=== PATIENT | female | born 1940 | race Caucasian/White ===

== ENCOUNTER → 2018-02-12 | Outpatient (CLI) | payer MEDICARE, MEDICAID | END | disposition home or self-care (01) | LOC: MAMMO 11:26 | PROVIDERS: ATTEND Specialist | DX: Z12.31 Encounter for screening mammogram for malignant neoplasm of breast (principal) | CPT/HCPCS: 77067 ==

== ENCOUNTER 2019-08-18 05:43 | Inpatient (IN) | payer MEDICARE, MEDICAID ==
[~2019-08-18] VITALS: Ht 162.6 cm; Wt 86.2 kg
[2019-08-18] MEDS ORDERED: LACTATED RINGERS 1,000 ML IV SCH (06:30)
[2019-08-18 07:05] LABS: CHLORIDE 106 mEq/L (98-107)
[2019-08-18] MEDS ORDERED: TRANEXAMIC ACID 1,000 MG in SODIUM CHLORIDE 0.9% 100 ML IV SCH (07:30)
[2019-08-18] MEDS ORDERED: PANT40TA4 PO (08:41)
[2019-08-18] MEDS ORDERED: CARV3.1242 PO (08:41)
[2019-08-18] MEDS ORDERED: DEXT15LI5 PO (08:41)
[2019-08-18] MEDS ORDERED: LEVO50TA8 PO (08:41)
[2019-08-18] MEDS ORDERED: LISI-604 PO (08:41)
[2019-08-18] MEDS ORDERED: ATOR20TA65 PO (08:41)
[2019-08-18] MEDS ORDERED: ACET-2708 PO (08:41)
[2019-08-18 08:57] LABS: CLARITY URINE CLEAR (CLEAR); COLOR URINE YELLOW (YELLOW); KETONES URINE NEGATIVE (NEGATIVE); LEUKOCYTE ESTERASE URINE TRACE (NEGATIVE); NITRITE URINE NEGATIVE (NEGATIVE); OCCULT BLOOD URINE NEGATIVE (NEGATIVE); PROTEIN URINE NEGATIVE (NEGATIVE); SPECIFIC GRAVITY URINE 1.009 (1.005-1.030); UROBILINOGEN URINE 0.2 E.U./dL (0.2-1.0)
[2019-08-18] MEDS ORDERED: SODIUM CHLORIDE 0.9% 1,000 ML IV ONE (11:36)
[2019-08-18] MEDS ORDERED: MEPERIDINE HCL/PF 25MG/ML CPJ IV PRN (11:45)
[2019-08-18] MEDS ORDERED: HYDROMORPHONE HCL/PF 2MG/ML CPJ IV PRN (11:45)
[2019-08-18] MEDS ORDERED: ONDANSETRON HCL 4MG/2ML INJ IV PRN ×2 (11:45→18:01)
[2019-08-18] MEDS ORDERED: MORPHINE SULFATE 2 MG/ML CPJ (NOT FOR IM USE) IV PRN (11:45)
[2019-08-18] MEDS ORDERED: ONDANSETRON INJ IV PRN (12:45)
[2019-08-18] MEDS ORDERED: NALOXONE INJ IV PRN (12:45)
[2019-08-18] MEDS ORDERED: DIPHENHYDRAMINE INJ IV PRN (12:45)
[2019-08-18] MEDS ORDERED: HYDROMORPHONE PCA 10MG/50ML IV PRN (12:45)
[2019-08-18] MEDS ORDERED: HYDROCODONE/ACETAMINOPHEN 5/325MG TABLET PO PRN ×2 (18:00→18:03)
[2019-08-18] MEDS ORDERED: ACETAMINOPHEN 325MG TABLET PO PRN (18:00)
[2019-08-18] MEDS ORDERED: MAGNESIUM HYDROXIDE 400MG/5ML 30ML UDC PO PRN (18:02)
[2019-08-18 18:30] VITALS: BP 133/53
[2019-08-18 19:48] LABS: BASOPHILS % 0.4 % (0.0-2.0); EOSINOPHILS % 2.3 % (0.0-5.0); HEMATOCRIT. 29.2 % (36.0-48.0); HEMOGLOBIN. 9.6 g/dL (12.0-16.0); LYMPHOCYTES % 17.5 % (20.0-50.0); MEAN CORPUSCULAR HEMOGLOBIN 30.1 pg (28.0-32.0); MEAN PLATELET VOLUME 7.9 fl (7.4-10.4); MONOCYTES % 7.3 % (2.0-8.0); NEUTROPHILS % 72.5 % (40.0-76.0); PLATELET 160 x1000/uL (130-400); RED BLOOD CELL COUNT 3.17 mill/uL (4.2-5.4); RED CELL DISTRIBUTION WIDTH 15.7 % (11.6-14.6)
[2019-08-18 20:00] VITALS: BP 137/49
[2019-08-18 21:00] VITALS: BP 137/49
[2019-08-18] MEDS ORDERED: ZOLPIDEM TARTRATE 5MG TABLET PO PRN (21:00)
[2019-08-18] MEDS: CLINDAMYCIN 900 MG in DEXTROSE 5% WATER 50 ML IV SCH (21:20)
[2019-08-18] MEDS: DOCUSATE SODIUM 100MG CAPSULE PO SCH (21:21)
[2019-08-18] MEDS: HYDROCODONE/ACETAMINOPHEN 5/325MG TABLET PO PRN (22:52)
[2019-08-19] VITALS (13 sets, daily range): BP systolic 79–124; BP diastolic 31–46
[2019-08-19] MEDS ORDERED: SODIUM CHLORIDE 0.9% 500 ML IV ONE (04:30)
[2019-08-19] MEDS: CLINDAMYCIN 900 MG in DEXTROSE 5% WATER 50 ML IV SCH (06:33)
[2019-08-19] MEDS: SODIUM CHLORIDE 0.9% 1,000 ML IV SCH ×2 (06:33→18:15)
[2019-08-19 06:52] LABS: BASOPHILS % 0.6 % (0.0-2.0); EOSINOPHILS % 3.2 % (0.0-5.0); HEMATOCRIT. 26.7 % (36.0-48.0); HEMOGLOBIN. 8.9 g/dL (12.0-16.0); LYMPHOCYTES % 14.4 % (20.0-50.0); MEAN CORPUSCULAR HEMOGLOBIN 30.7 pg (28.0-32.0); MEAN CORPUSCULAR VOLUME 91.9 fL (81.0-99.0); MEAN PLATELET VOLUME 8.1 fl (7.4-10.4); MONOCYTES % 9.3 % (2.0-8.0); NEUTROPHILS % 72.5 % (40.0-76.0); PLATELET 155 x1000/uL (130-400); RED CELL DISTRIBUTION WIDTH 15.6 % (11.6-14.6)
[2019-08-19] MEDS: DOCUSATE SODIUM 100MG CAPSULE PO SCH ×2 (08:44→17:42)
[2019-08-19] MEDS: ENOXAPARIN 30MG/0.3ML SYR SUBCUT SCH ×2 (08:48→21:52)
[2019-08-19] MEDS ORDERED: MAGNESIUM 2 G PREMIX 50 ML IV SCH (11:00)
[2019-08-19] MEDS ORDERED: SODIUM CHLORIDE 0.9% 500 ML IV NR (11:00)
[2019-08-19] MEDS: HYDROCODONE/ACETAMINOPHEN 5/325MG TABLET PO PRN ×2 (17:43→21:51)
[2019-08-20] VITALS (7 sets, daily range): BP systolic 94–130; BP diastolic 37–57
[2019-08-20 07:04] LABS: CHLORIDE 107 mEq/L (98-107)
[2019-08-20 07:05] LABS: BASOPHILS % 0.2 % (0.0-2.0); EOSINOPHILS % 2.4 % (0.0-5.0); HEMATOCRIT. 26.8 % (36.0-48.0); HEMOGLOBIN. 8.8 g/dL (12.0-16.0); LYMPHOCYTES % 13.7 % (20.0-50.0); MEAN CORPUSCULAR HEMOGLOBIN 30.4 pg (28.0-32.0); MEAN CORPUSCULAR VOLUME 92.1 fL (81.0-99.0); MEAN PLATELET VOLUME 8.2 fl (7.4-10.4); MONOCYTES % 9.8 % (2.0-8.0); NEUTROPHILS % 73.9 % (40.0-76.0); PLATELET 137 x1000/uL (130-400); RED CELL DISTRIBUTION WIDTH 15.7 % (11.6-14.6)
[2019-08-20] MEDS: HYDROCODONE/ACETAMINOPHEN 5/325MG TABLET PO PRN ×2 (08:03→15:10)
[2019-08-20] MEDS: DOCUSATE SODIUM 100MG CAPSULE PO SCH ×2 (08:03→17:00)
[2019-08-20] MEDS: ENOXAPARIN 30MG/0.3ML SYR SUBCUT SCH ×2 (08:04→21:01)
[2019-08-20] MEDS: ASPIRIN 81MG EC TABLET PO SCH ×2 (10:45→11:09)
[2019-08-20] MEDS: SODIUM CHLORIDE 0.9% 1,000 ML IV SCH (19:15)
[2019-08-20] MEDS ORDERED: ATORVASTATIN CALCIUM 20MG TABLET PO SCH (21:00)
[2019-08-20] MEDS: LACTULOSE 20G/30ML UDC PO SCH (21:01)
[2019-08-20] MEDS: CARVEDILOL 3.125 MG TABLET PO SCH (21:02)
[2019-08-21] VITALS: BP 126/50
[2019-08-21 04:00] VITALS: BP 138/53
[2019-08-21] MEDS: HYDROCODONE/ACETAMINOPHEN 5/325MG TABLET PO PRN (05:04)
[2019-08-21 08:06] VITALS: BP 115/40
[2019-08-21] MEDS: ASPIRIN 81MG EC TABLET PO SCH (09:00)
[2019-08-21] MEDS ORDERED: DOCUSATE SODIUM 100MG CAPSULE PO SCH (09:00)
[2019-08-21] MEDS: LACTULOSE 20G/30ML UDC PO SCH (09:47)
[2019-08-21] MEDS: CARVEDILOL 3.125 MG TABLET PO SCH (09:48)
[2019-08-21] MEDS: DOCUSATE SODIUM 100MG CAPSULE PO SCH (09:48)
[2019-08-21] MEDS: ENOXAPARIN 30MG/0.3ML SYR SUBCUT SCH (09:49)
[2019-08-21 12:00] VITALS: BP 106/43
[2019-08-21] MEDS ORDERED: BISACODYL 10MG SUPP PR PRN (14:00)
[2019-08-21 16:00] VITALS: BP 137/47
== END 2019-08-21 17:25 | DRG 470 ==
LOC: OR 05:43 → 8WST 18:21
PROVIDERS: ADMIT Orthopaedic Surgery; ATTEND Internal Medicine
PROC: 0SRC0J9 Replacement of Right Knee Joint with Synthetic Substitute, Cemented, Open Approach (ICD-10-PCS; principal; 2019-08-18)
DX: M17.11 Unilateral primary osteoarthritis, right knee (principal); N39.0 Urinary tract infection, site not specified; M21.061 Valgus deformity, not elsewhere classified, right knee; I10 Essential (primary) hypertension; I95.9 Hypotension, unspecified; D64.9 Anemia, unspecified; E83.42 Hypomagnesemia; I44.7 Left bundle-branch block, unspecified; I44.0 Atrioventricular block, first degree; E03.9 Hypothyroidism, unspecified; E66.9 Obesity, unspecified; E78.5 Hyperlipidemia, unspecified; G89.29 Other chronic pain; J45.909 Unspecified asthma, uncomplicated; R26.9 Unspecified abnormalities of gait and mobility; K21.9 Gastro-esophageal reflux disease without esophagitis; K59.00 Constipation, unspecified; M65.9 Synovitis and tenosynovitis, unspecified; Z79.01 Long term (current) use of anticoagulants; Z79.02 Long term (current) use of antithrombotics/antiplatelets; Z95.2 Presence of prosthetic heart valve; Z88.0 Allergy status to penicillin; Z83.3 Family history of diabetes mellitus; Z82.49 Family history of ischemic heart disease and other diseases of the circulatory system; Z87.891 Personal history of nicotine dependence; Z68.32 Body mass index [BMI] 32.0-32.9, adult; Z79.82 Long term (current) use of aspirin; Z87.01 Personal history of pneumonia (recurrent); Z79.899 Other long term (current) drug therapy
CPT/HCPCS: 36415; 73560; 80048; 81003; 82962; 83735; 84443; 86850; 86900; 88305; 88311; 93005; 97110; 97163; 97167; 97530; 97535; C1713; C1776; C1893; J0171; J0330; J0690; J1100; J1170; J1580; J1650; J2250; J2270; J2274; J2370; J2405; J2704; J2710; J2765; J2795; J3010; J3370; J3475; J3490; J7030; J7040; J7050; J7060; L1830; Q9968

== ENCOUNTER 2019-08-21 17:30 | Inpatient (IN) | payer MEDICARE, MEDICAID ==
[~2019-08-21] VITALS: Ht 165.1 cm; Wt 89.8 kg
[2019-08-21 16:00] VITALS: BP 136/56
[~2019-08-21 17:30] MED LIST: ACET-2708 PO; ATOR20TA65 PO; CARV3.1242 PO; DEXT15LI5 PO; LEVO50TA8 PO; LISI-604 PO; PANT40TA4 PO
[2019-08-21] MEDS ORDERED: ONDANSETRON 4MG ODT PO PRN (18:00)
[2019-08-21] MEDS ORDERED: DIPHENHYDRAMINE 50MG/ML VIAL IV PRN (18:00)
[2019-08-21] MEDS: SODIUM CHLORIDE 0.9% 1,000 ML IV SCH (18:00)
[2019-08-21] MEDS ORDERED: MAGNESIUM HYDROXIDE 400MG/5ML 30ML UDC PO PRN (18:00)
[2019-08-21] MEDS ORDERED: ONDANSETRON HCL 4MG TABLET PO PRN (18:00)
[2019-08-21] MEDS ORDERED: ZOLPIDEM TARTRATE 5MG TABLET PO PRN (18:00)
[2019-08-21 18:44] VITALS: BP 136/56
[2019-08-21 19:08] LABS: BASOPHILS % 0.3 % (0.0-2.0); HEMATOCRIT. 24.7 % (36.0-48.0); HEMOGLOBIN. 8.3 g/dL (12.0-16.0); LYMPHOCYTES % 10.2 % (20.0-50.0); MEAN CORPUSCULAR HEMOGLOBIN 31.2 pg (28.0-32.0); MEAN CORPUSCULAR VOLUME 92.5 fL (81.0-99.0); MEAN PLATELET VOLUME 8.4 fl (7.4-10.4); NEUTROPHILS % 78.5 % (40.0-76.0); PLATELET 147 x1000/uL (130-400); RED BLOOD CELL COUNT 2.67 mill/uL (4.2-5.4); RED CELL DISTRIBUTION WIDTH 15.9 % (11.6-14.6)
[2019-08-21 19:13] LABS: CHLORIDE 108 mEq/L (98-107)
[2019-08-21 20:00] VITALS: BP 120/43
[2019-08-21] MEDS: CARVEDILOL 3.125 MG TABLET PO SCH (21:24)
[2019-08-21] MEDS: ATORVASTATIN CALCIUM 20MG TABLET PO SCH (21:24)
[2019-08-21] MEDS: ENOXAPARIN 30MG/0.3ML SYR SUBCUT SCH (21:25)
[2019-08-22] MEDS: ACETAMINOPHEN 325MG TABLET PO PRN (03:47)
[2019-08-22] MEDS: SODIUM CHLORIDE 0.9% 1,000 ML IV SCH ×2 (06:30→19:00)
[2019-08-22 08:00] VITALS: BP 154/53
[2019-08-22] MEDS: ENOXAPARIN 30MG/0.3ML SYR SUBCUT SCH (08:37)
[2019-08-22] MEDS: DOCUSATE SODIUM 100MG CAPSULE PO SCH ×2 (08:37→16:29)
[2019-08-22] MEDS: CARVEDILOL 3.125 MG TABLET PO SCH (08:37)
[2019-08-22] MEDS ORDERED: ASPIRIN 81MG TABLET PO SCH (09:00)
[2019-08-22] MEDS: HYDROCODONE/ACETAMINOPHEN 5/325MG TABLET PO PRN (15:19)
[2019-08-22 15:41] VITALS: BP 151/63
[2019-08-22 16:08] LABS: CLARITY URINE CLOUDY (CLEAR); COLOR URINE YELLOW (YELLOW); KETONES URINE NEGATIVE (NEGATIVE); LEUKOCYTE ESTERASE URINE 2+ (NEGATIVE); NITRITE URINE POSITIVE (NEGATIVE); OCCULT BLOOD URINE NEGATIVE (NEGATIVE); PROTEIN URINE NEGATIVE (NEGATIVE); SPECIFIC GRAVITY URINE 1.013 (1.005-1.030); UROBILINOGEN URINE 0.2 E.U./dL (0.2-1.0)
[2019-08-22 20:00] VITALS: BP 120/27
[2019-08-22] MEDS: CARVEDILOL 6.25 MG TABLET PO SCH (20:58)
[2019-08-22] MEDS: ATORVASTATIN CALCIUM 20MG TABLET PO SCH (20:58)
[2019-08-23] VITALS (7 sets, daily range): BP systolic 123–146; BP diastolic 38–97
[2019-08-23] MEDS: HYDROCODONE/ACETAMINOPHEN 5/325MG TABLET PO PRN ×2 (04:31→22:07)
[2019-08-23 07:11] LABS: BASOPHILS % 0.7 % (0.0-2.0); EOSINOPHILS % 6.3 % (0.0-5.0); HEMATOCRIT. 21.9 % (36.0-48.0); HEMOGLOBIN. 7.4 g/dL (12.0-16.0); MEAN CORPUSCULAR HEMOGLOBIN 30.6 pg (28.0-32.0); MEAN CORPUSCULAR VOLUME 91.3 fL (81.0-99.0); MEAN PLATELET VOLUME 8.2 fl (7.4-10.4); MONOCYTES % 8.6 % (2.0-8.0); NEUTROPHILS % 66.4 % (40.0-76.0); PLATELET 151 x1000/uL (130-400); RED CELL DISTRIBUTION WIDTH 15.7 % (11.6-14.6)
[2019-08-23 07:18] LABS: CHLORIDE 109 mEq/L (98-107)
[2019-08-23 07:26] LABS: TOTAL IRON BINDING CAPACITY 205 ug/dL (250-450)
[2019-08-23 07:28] LABS: PHOSPHORUS 2.2 mg/dL (2.5-4.9)
[2019-08-23 07:29] LABS: LDL CHOLESTEROL 50 mg/dL (5-100)
[2019-08-23] MEDS: SODIUM CHLORIDE 0.9% 1,000 ML IV SCH ×2 (07:30→20:00)
[2019-08-23 07:32] LABS: HDL CHOLESTEROL 44 mg/dL (40-59)
[2019-08-23 07:37] LABS: FOLIC ACID (FOLATE) SERUM >20 ng/mL ng/mL (>5.38)
[2019-08-23 07:42] LABS: FERRITIN 50 ng/mL (10-291)
[2019-08-23 07:48] LABS: VITAMIN B12 SERUM 352 pg/mL (211-911)
[2019-08-23] MEDS: CARVEDILOL 6.25 MG TABLET PO SCH ×2 (08:28→22:05)
[2019-08-23] MEDS: DOCUSATE SODIUM 100MG CAPSULE PO SCH ×2 (08:29→17:33)
[2019-08-23] MEDS ORDERED: MAGNESIUM OXIDE 400MG TABLET PO SCH (15:45)
[2019-08-23] MEDS ORDERED: LEVOFLOXACIN 500MG TABLET PO NR (16:00)
[2019-08-23] MEDS ORDERED: POTASSIUM-SODIUM PHOSPHATE POWDER PACKET PO NR (16:00)
[2019-08-23] MEDS ORDERED: OMEPRAZOLE 20MG CAPSULE EXTENDED RELEASE PO SCH (17:00)
[2019-08-23] MEDS: CYANOCOBALAMIN 1000MCG/ML VIAL IM SCH (17:34)
[2019-08-23 20:21] LABS: HEMATOCRIT 27.2 % (36.0-48.0); HEMOGLOBIN 9.2 g/dL (12.0-16.0)
[2019-08-23] MEDS: ATORVASTATIN CALCIUM 20MG TABLET PO SCH (22:04)
[2019-08-23] MEDS: PANTOPRAZOLE SODIUM 40 MG/VIAL IV SCH (22:04)
[2019-08-24] MEDS: HYDROCODONE/ACETAMINOPHEN 5/325MG TABLET PO PRN ×2 (05:27→09:41)
[2019-08-24 07:35] LABS: BASOPHILS % 0.7 % (0.0-2.0); EOSINOPHILS % 6.5 % (0.0-5.0); HEMATOCRIT. 25.5 % (36.0-48.0); HEMOGLOBIN. 8.7 g/dL (12.0-16.0); MEAN CORPUSCULAR HEMOGLOBIN 30.8 pg (28.0-32.0); MEAN CORPUSCULAR VOLUME 90.5 fL (81.0-99.0); MEAN PLATELET VOLUME 8.3 fl (7.4-10.4); MONOCYTES % 10.6 % (2.0-8.0); NEUTROPHILS % 63.2 % (40.0-76.0); PLATELET 149 x1000/uL (130-400); RED BLOOD CELL COUNT 2.82 mill/uL (4.2-5.4); RED CELL DISTRIBUTION WIDTH 15.2 % (11.6-14.6)
[2019-08-24 08:00] VITALS: BP 138/60
[2019-08-24 08:06] LABS: CHLORIDE 109 mEq/L (98-107)
[2019-08-24] MEDS: PANTOPRAZOLE SODIUM 40 MG/VIAL IV SCH ×2 (09:42→21:50)
[2019-08-24] MEDS: SODIUM CHLORIDE 0.9% 1,000 ML IV SCH ×2 (09:42→22:10)
[2019-08-24] MEDS: CYANOCOBALAMIN 1000MCG/ML VIAL IM SCH (09:42)
[2019-08-24] MEDS: CARVEDILOL 6.25 MG TABLET PO SCH ×2 (09:42→21:51)
[2019-08-24] MEDS: DOCUSATE SODIUM 100MG CAPSULE PO SCH ×2 (09:42→16:54)
[2019-08-24] MEDS: LEVOFLOXACIN 250MG TABLET PO SCH (11:34)
[2019-08-24] MEDS ORDERED: EPINEPHRINE 0.1MG/ML (1:10,000) 10ML SYR ONE (11:37)
[2019-08-24] MEDS ORDERED: SODIUM CHLORIDE 0.9% 10ML VIAL ONE (12:00)
[2019-08-24] MEDS ORDERED: SIMETHICONE 40 MG/0.6 ML 30ML ONE (12:00)
[2019-08-24] MEDS ORDERED: MIDAZOLAM HCL 5 MG/5 ML VIAL ONE (12:51)
[2019-08-24] MEDS ORDERED: FENTANYL CITRATE/PF 50MCG/ML 2ML VIAL ONE (12:51)
[2019-08-24] MEDS ORDERED: MIDAZOLAM HCL 2 MG/2 ML VIAL IV PRN (12:55)
[2019-08-24] MEDS ORDERED: FENTANYL CITRATE/PF 50MCG/ML 2ML VIAL IV PRN (12:56)
[2019-08-24] MEDS ORDERED: LABETALOL 5MG/ML SYR 20 MG/4 ML SYRINGE IV PRN (13:22)
[2019-08-24] MEDS ORDERED: LABETALOL 5MG/ML SYR 20 MG/4 ML SYRINGE IV ONE (13:32)
[2019-08-24] MEDS: SUCRALFATE 1G TABLET PO SCH ×2 (16:55→21:50)
[2019-08-24] MEDS ORDERED: LACTULOSE 20G/30ML UDC PO SCH (17:48)
[2019-08-24 20:00] VITALS: BP 147/45
[2019-08-24] MEDS: ATORVASTATIN CALCIUM 20MG TABLET PO SCH (21:50)
[2019-08-24] MEDS: IRON SUCROSE COMPLEX 100 MG in SODIUM CHLORIDE 0.9% 100 ML IV SCH (21:51)
[2019-08-25] MEDS: SUCRALFATE 1G TABLET PO SCH ×4 (06:22→21:06)
[2019-08-25] MEDS: HYDROCODONE/ACETAMINOPHEN 5/325MG TABLET PO PRN (06:34)
[2019-08-25 06:43] LABS: BASOPHILS % 0.8 % (0.0-2.0); EOSINOPHILS % 5.3 % (0.0-5.0); HEMATOCRIT. 28.4 % (36.0-48.0); HEMOGLOBIN. 9.3 g/dL (12.0-16.0); LYMPHOCYTES % 16.8 % (20.0-50.0); MEAN PLATELET VOLUME 8.1 fl (7.4-10.4); MONOCYTES % 9.4 % (2.0-8.0); NEUTROPHILS % 67.7 % (40.0-76.0); PLATELET 177 x1000/uL (130-400); RED BLOOD CELL COUNT 3.12 mill/uL (4.2-5.4); RED CELL DISTRIBUTION WIDTH 15.5 % (11.6-14.6)
[2019-08-25 06:50] LABS: CHLORIDE 106 mEq/L (98-107)
[2019-08-25 08:05] VITALS: BP 144/52
[2019-08-25 08:31] LABS: PROTHROMBIN TIME 10.6 sec (9.6-11.0)
[2019-08-25] MEDS: DOCUSATE SODIUM 100MG CAPSULE PO SCH ×2 (08:45→16:32)
[2019-08-25] MEDS: POLYETHYLENE GLYCOL 3350 (17GM) 1 DOSE PACK PO SCH (08:45)
[2019-08-25] MEDS: CARVEDILOL 6.25 MG TABLET PO SCH ×2 (08:45→21:06)
[2019-08-25] MEDS: CYANOCOBALAMIN 1000MCG/ML VIAL IM SCH (08:46)
[2019-08-25] MEDS: LEVOFLOXACIN 250MG TABLET PO SCH (10:24)
[2019-08-25] MEDS ORDERED: LIDOCAINE HCL 1% 20ML VIAL (Pyxis) INJ ONE (13:29)
[2019-08-25] MEDS: SODIUM CHLORIDE 0.9% 1,000 ML IV SCH (15:46)
[2019-08-25] MEDS: PANTOPRAZOLE SODIUM 40 MG/VIAL IV SCH (15:46)
[2019-08-25 20:00] VITALS: BP 167/69
[2019-08-25] MEDS: SULFAMETHOXAZOLE/TRIMETHOPRIM 800/160MG TABLET PO SCH (21:06)
[2019-08-25] MEDS: ATORVASTATIN CALCIUM 20MG TABLET PO SCH (21:06)
[2019-08-25] MEDS: IRON SUCROSE COMPLEX 100 MG in SODIUM CHLORIDE 0.9% 100 ML IV SCH (21:07)
[2019-08-26] MEDS: SUCRALFATE 1G TABLET PO SCH ×4 (06:53→21:13)
[2019-08-26] MEDS: HYDROCODONE/ACETAMINOPHEN 5/325MG TABLET PO PRN ×2 (06:55→13:54)
[2019-08-26] MEDS: SODIUM CHLORIDE 0.9% 1,000 ML IV SCH (06:57)
[2019-08-26 07:24] LABS: HEMATOCRIT 24.1 % (36.0-48.0); HEMOGLOBIN 8.2 g/dL (12.0-16.0); MEAN CORPUSCULAR HEMOGLOBIN 30.9 pg (28.0-32.0); MEAN CORPUSCULAR VOLUME 90.7 fL (81.0-99.0); PLATELET 173 x1000/uL (130-400); RED BLOOD CELL COUNT 2.66 mill/uL (4.2-5.4); RED CELL DISTRIBUTION WIDTH 15.6 % (11.6-14.6)
[2019-08-26 08:00] VITALS: BP 148/50
[2019-08-26] MEDS: DOCUSATE SODIUM 100MG CAPSULE PO SCH ×2 (09:02→17:34)
[2019-08-26] MEDS: SULFAMETHOXAZOLE/TRIMETHOPRIM 800/160MG TABLET PO SCH ×2 (09:02→21:13)
[2019-08-26] MEDS: CARVEDILOL 6.25 MG TABLET PO SCH ×2 (09:03→21:13)
[2019-08-26] MEDS: POLYETHYLENE GLYCOL 3350 (17GM) 1 DOSE PACK PO SCH (09:03)
[2019-08-26] MEDS: CYANOCOBALAMIN 1000MCG/ML VIAL IM SCH (09:03)
[2019-08-26] MEDS: PANTOPRAZOLE SODIUM 40 MG/VIAL IV SCH ×2 (09:03→09:31)
[2019-08-26] MEDS ORDERED: LACTULOSE 20G/30ML UDC PO SCH ×2 (10:00→15:00)
[2019-08-26] MEDS ORDERED: HYDROCODONE/ACETAMINOPHEN 5/325MG TABLET PO PRN (19:15)
[2019-08-26] MEDS ORDERED: ZOLPIDEM TARTRATE 5MG TABLET PO PRN (19:15)
[2019-08-26 20:00] VITALS: BP 126/50
[2019-08-26] MEDS: IRON SUCROSE COMPLEX 100 MG in SODIUM CHLORIDE 0.9% 100 ML IV SCH (21:13)
[2019-08-26] MEDS: ATORVASTATIN CALCIUM 20MG TABLET PO SCH (21:13)
[2019-08-27] MEDS: SUCRALFATE 1G TABLET PO SCH ×4 (06:08→20:27)
[2019-08-27] MEDS: HYDROCODONE/ACETAMINOPHEN 5/325MG TABLET PO PRN ×2 (06:49→20:40)
[2019-08-27 07:00] VITALS: BP 148/50
[2019-08-27] MEDS: POLYETHYLENE GLYCOL 3350 (17GM) 1 DOSE PACK PO SCH (08:43)
[2019-08-27] MEDS: CYANOCOBALAMIN 1000MCG/ML VIAL IM SCH (08:44)
[2019-08-27] MEDS: SULFAMETHOXAZOLE/TRIMETHOPRIM 800/160MG TABLET PO SCH ×2 (08:44→20:27)
[2019-08-27] MEDS: CARVEDILOL 6.25 MG TABLET PO SCH ×2 (08:44→20:28)
[2019-08-27] MEDS: DOCUSATE SODIUM 100MG CAPSULE PO SCH ×2 (08:46→16:33)
[2019-08-27 11:43] LABS: HEMATOCRIT 28.8 % (36.0-48.0); HEMOGLOBIN 9.6 g/dL (12.0-16.0)
[2019-08-27 13:00] VITALS: BP 95/34
[2019-08-27 20:00] VITALS: BP 108/39
[2019-08-27] MEDS: ATORVASTATIN CALCIUM 20MG TABLET PO SCH (20:27)
[2019-08-27] MEDS: IRON SUCROSE COMPLEX 100 MG in SODIUM CHLORIDE 0.9% 100 ML IV SCH (20:27)
[2019-08-27] MEDS: LISINOPRIL 10MG TABLET PO SCH (20:28)
[2019-08-28 04:09] LABS: 25-HYDROXY VITAMIN D3 8.7 ng/mL (.)
[2019-08-28] MEDS: SUCRALFATE 1G TABLET PO SCH ×4 (06:22→21:10)
[2019-08-28] MEDS: HYDROCODONE/ACETAMINOPHEN 5/325MG TABLET PO PRN (06:23)
[2019-08-28 07:12] LABS: BASOPHILS % 0.7 % (0.0-2.0); EOSINOPHILS % 6.8 % (0.0-5.0); HEMATOCRIT. 28.3 % (36.0-48.0); HEMOGLOBIN. 9.4 g/dL (12.0-16.0); LYMPHOCYTES % 20.1 % (20.0-50.0); MEAN CORPUSCULAR HEMOGLOBIN 30.7 pg (28.0-32.0); MEAN PLATELET VOLUME 7.9 fl (7.4-10.4); MONOCYTES % 8.8 % (2.0-8.0); NEUTROPHILS % 63.6 % (40.0-76.0); PLATELET 222 x1000/uL (130-400); RED BLOOD CELL COUNT 3.07 mill/uL (4.2-5.4); RED CELL DISTRIBUTION WIDTH 15.7 % (11.6-14.6)
[2019-08-28 07:28] LABS: CHLORIDE 106 mEq/L (98-107)
[2019-08-28 08:00] VITALS: BP 124/38
[2019-08-28] MEDS: CYANOCOBALAMIN 1000MCG/ML VIAL IM SCH (10:24)
[2019-08-28] MEDS: PANTOPRAZOLE SODIUM 40 MG/VIAL IV SCH (10:24)
[2019-08-28] MEDS: SULFAMETHOXAZOLE/TRIMETHOPRIM 800/160MG TABLET PO SCH ×2 (10:24→21:10)
[2019-08-28] MEDS: DOCUSATE SODIUM 100MG CAPSULE PO SCH ×2 (10:27→17:54)
[2019-08-28] MEDS: POLYETHYLENE GLYCOL 3350 (17GM) 1 DOSE PACK PO SCH (10:28)
[2019-08-28] MEDS: LISINOPRIL 10MG TABLET PO SCH ×2 (10:28→21:11)
[2019-08-28] MEDS: CARVEDILOL 6.25 MG TABLET PO SCH ×2 (10:28→21:11)
[2019-08-28] MEDS: ACETAMINOPHEN 325MG TABLET PO PRN (13:34)
[2019-08-28] MEDS ORDERED: ERGOCALCIFEROL 50000UNITS CAPSULE PO SCH (13:51)
[2019-08-28] MEDS: ENOXAPARIN 30MG/0.3ML SYR SUBCUT SCH (14:00)
[2019-08-28 20:00] VITALS: BP 131/49
[2019-08-28] MEDS: ATORVASTATIN CALCIUM 20MG TABLET PO SCH (21:10)
[2019-08-28] MEDS: IRON SUCROSE COMPLEX 100 MG in SODIUM CHLORIDE 0.9% 100 ML IV SCH (21:11)
[2019-08-29] MEDS: HYDROCODONE/ACETAMINOPHEN 5/325MG TABLET PO PRN ×2 (02:34→06:31)
[2019-08-29] MEDS: ENOXAPARIN 30MG/0.3ML SYR SUBCUT SCH ×2 (06:00→17:08)
[2019-08-29] MEDS: SUCRALFATE 1G TABLET PO SCH ×4 (06:25→21:35)
[2019-08-29 07:38] LABS: BASOPHILS % 0.8 % (0.0-2.0); EOSINOPHILS % 5.7 % (0.0-5.0); HEMATOCRIT. 24.6 % (36.0-48.0); HEMOGLOBIN. 8.1 g/dL (12.0-16.0); LYMPHOCYTES % 17.5 % (20.0-50.0); MEAN CORPUSCULAR HEMOGLOBIN 30.5 pg (28.0-32.0); MEAN CORPUSCULAR VOLUME 92.2 fL (81.0-99.0); MEAN PLATELET VOLUME 8.3 fl (7.4-10.4); MONOCYTES % 9.1 % (2.0-8.0); NEUTROPHILS % 66.9 % (40.0-76.0); PLATELET 203 x1000/uL (130-400); RED BLOOD CELL COUNT 2.67 mill/uL (4.2-5.4); RED CELL DISTRIBUTION WIDTH 16.3 % (11.6-14.6)
[2019-08-29 08:00] VITALS: BP 105/45
[2019-08-29 08:24] LABS: CHLORIDE 107 mEq/L (98-107)
[2019-08-29] MEDS: LISINOPRIL 10MG TABLET PO SCH ×2 (09:00→21:50)
[2019-08-29] MEDS: CARVEDILOL 6.25 MG TABLET PO SCH ×2 (09:00→21:50)
[2019-08-29] MEDS: DOCUSATE SODIUM 100MG CAPSULE PO SCH ×2 (09:44→16:19)
[2019-08-29] MEDS: PANTOPRAZOLE SODIUM 40 MG/VIAL IV SCH (09:45)
[2019-08-29] MEDS: CYANOCOBALAMIN 1000MCG/ML VIAL IM SCH (09:45)
[2019-08-29] MEDS: POLYETHYLENE GLYCOL 3350 (17GM) 1 DOSE PACK PO SCH (09:47)
[2019-08-29 20:00] VITALS: BP 144/46
[2019-08-29] MEDS: ATORVASTATIN CALCIUM 20MG TABLET PO SCH (21:35)
[2019-08-30] MEDS: ENOXAPARIN 30MG/0.3ML SYR SUBCUT SCH ×2 (06:00→16:43)
[2019-08-30] MEDS: SUCRALFATE 1G TABLET PO SCH ×4 (06:24→21:02)
[2019-08-30 06:57] LABS: BASOPHILS % 0.8 % (0.0-2.0); EOSINOPHILS % 5.5 % (0.0-5.0); HEMATOCRIT. 27.2 % (36.0-48.0); HEMOGLOBIN. 9.1 g/dL (12.0-16.0); LYMPHOCYTES % 18.1 % (20.0-50.0); MEAN CORPUSCULAR VOLUME 92.3 fL (81.0-99.0); MEAN PLATELET VOLUME 8.3 fl (7.4-10.4); MONOCYTES % 8.3 % (2.0-8.0); NEUTROPHILS % 67.3 % (40.0-76.0); PLATELET 247 x1000/uL (130-400); RED BLOOD CELL COUNT 2.95 mill/uL (4.2-5.4); RED CELL DISTRIBUTION WIDTH 16.2 % (11.6-14.6)
[2019-08-30 08:00] VITALS: BP 156/55
[2019-08-30 08:04] VITALS: BP 156/55
[2019-08-30 08:42] LABS: CHLORIDE 105 mEq/L (98-107)
[2019-08-30 08:48] LABS: PHOSPHORUS 2.3 mg/dL (2.5-4.9)
[2019-08-30] MEDS: CARVEDILOL 6.25 MG TABLET PO SCH ×2 (08:54→21:03)
[2019-08-30] MEDS: PANTOPRAZOLE SODIUM 40 MG/VIAL IV SCH (08:54)
[2019-08-30] MEDS: DOCUSATE SODIUM 100MG CAPSULE PO SCH ×2 (08:54→16:49)
[2019-08-30] MEDS: LISINOPRIL 10MG TABLET PO SCH ×3 (08:55→21:45)
[2019-08-30] MEDS: POLYETHYLENE GLYCOL 3350 (17GM) 1 DOSE PACK PO SCH (08:55)
[2019-08-30] MEDS ORDERED: POTASSIUM-SODIUM PHOSPHATE POWDER PACKET PO SCH (09:15)
[2019-08-30] MEDS: OXYCODONE HCL 5MG TABLET PO SCH ×3 (09:56→21:05)
[2019-08-30] MEDS: HYDROCODONE/ACETAMINOPHEN 5/325MG TABLET PO PRN (17:09)
[2019-08-30 20:00] VITALS: BP 123/52
[2019-08-30] MEDS: ATORVASTATIN CALCIUM 20MG TABLET PO SCH (21:03)
[2019-08-31] MEDS: SUCRALFATE 1G TABLET PO SCH ×4 (05:39→21:20)
[2019-08-31] MEDS: ENOXAPARIN 30MG/0.3ML SYR SUBCUT SCH ×2 (05:40→16:45)
[2019-08-31] MEDS: OXYCODONE HCL 5MG TABLET PO SCH ×3 (05:41→21:21)
[2019-08-31 08:00] VITALS: BP 150/56
[2019-08-31] MEDS: POLYETHYLENE GLYCOL 3350 (17GM) 1 DOSE PACK PO SCH (08:44)
[2019-08-31] MEDS: DOCUSATE SODIUM 100MG CAPSULE PO SCH ×2 (08:44→16:44)
[2019-08-31] MEDS: CARVEDILOL 6.25 MG TABLET PO SCH ×2 (08:44→21:00)
[2019-08-31] MEDS: LISINOPRIL 10MG TABLET PO SCH ×2 (08:45→21:00)
[2019-08-31] MEDS: PANTOPRAZOLE SODIUM 40 MG/VIAL IV SCH (08:46)
[2019-08-31] MEDS ORDERED: COR6 PO (12:39)
[2019-08-31] MEDS ORDERED: LISI10TA5 PO (12:39)
[2019-08-31] MEDS ORDERED: OXYC-579 PO (12:39)
[2019-08-31] MEDS: ACETAMINOPHEN 325MG TABLET PO PRN (17:54)
[2019-08-31 20:00] VITALS: BP 115/35
[2019-08-31] MEDS: ATORVASTATIN CALCIUM 20MG TABLET PO SCH (21:20)
[2019-09-01] MEDS: OXYCODONE HCL 5MG TABLET PO SCH ×2 (05:01→13:18)
[2019-09-01] MEDS: SUCRALFATE 1G TABLET PO SCH ×4 (05:59→21:19)
[2019-09-01] MEDS: ENOXAPARIN 30MG/0.3ML SYR SUBCUT SCH ×2 (06:00→17:19)
[2019-09-01 08:10] VITALS: BP 131/49
[2019-09-01] MEDS: PANTOPRAZOLE SODIUM 40 MG/VIAL IV SCH (08:15)
[2019-09-01] MEDS: CARVEDILOL 6.25 MG TABLET PO SCH ×2 (08:16→21:00)
[2019-09-01] MEDS: DOCUSATE SODIUM 100MG CAPSULE PO SCH ×2 (08:16→16:28)
[2019-09-01] MEDS: LISINOPRIL 10MG TABLET PO SCH ×2 (08:16→21:00)
[2019-09-01] MEDS: POLYETHYLENE GLYCOL 3350 (17GM) 1 DOSE PACK PO SCH (08:17)
[2019-09-01 08:26] LABS: PHOSPHORUS 3.3 mg/dL (2.5-4.9)
[2019-09-01 20:00] VITALS: BP 118/29
[2019-09-01] MEDS: ACETAMINOPHEN 325MG TABLET PO PRN (21:19)
[2019-09-01] MEDS: ATORVASTATIN CALCIUM 20MG TABLET PO SCH (21:19)
[2019-09-02] MEDS: OXYCODONE HCL 5MG TABLET PO SCH ×3 (00:31→13:12)
[2019-09-02] MEDS: SUCRALFATE 1G TABLET PO SCH ×3 (05:57→17:32)
[2019-09-02] MEDS: ENOXAPARIN 30MG/0.3ML SYR SUBCUT SCH ×2 (05:58→17:33)
[2019-09-02 07:17] LABS: BASOPHILS % 1.3 % (0.0-2.0); EOSINOPHILS % 6.6 % (0.0-5.0); HEMATOCRIT. 28.4 % (36.0-48.0); HEMOGLOBIN. 9.6 g/dL (12.0-16.0); LYMPHOCYTES % 24.1 % (20.0-50.0); MEAN CORPUSCULAR HEMOGLOBIN 31.2 pg (28.0-32.0); MEAN CORPUSCULAR VOLUME 92.6 fL (81.0-99.0); MEAN PLATELET VOLUME 7.9 fl (7.4-10.4); MONOCYTES % 8.5 % (2.0-8.0); NEUTROPHILS % 59.5 % (40.0-76.0); PLATELET 288 x1000/uL (130-400); RED BLOOD CELL COUNT 3.07 mill/uL (4.2-5.4)
[2019-09-02 07:25] LABS: CHLORIDE 104 mEq/L (98-107)
[2019-09-02 08:09] VITALS: BP 123/42
[2019-09-02] MEDS: PANTOPRAZOLE SODIUM 40 MG/VIAL IV SCH (08:55)
[2019-09-02] MEDS: CARVEDILOL 6.25 MG TABLET PO SCH (08:56)
[2019-09-02] MEDS: LISINOPRIL 10MG TABLET PO SCH (08:56)
[2019-09-02] MEDS: DOCUSATE SODIUM 100MG CAPSULE PO SCH ×2 (08:56→17:32)
[2019-09-02] MEDS: POLYETHYLENE GLYCOL 3350 (17GM) 1 DOSE PACK PO SCH (08:56)
[2019-09-02 11:50] VITALS: BP 123/52
[2019-09-02 13:12] VITALS: BP 112/53
[2019-09-05] MEDS ORDERED: CYANOCOBALAMIN 1000MCG/ML VIAL IM SCH (09:00)
== END 2019-09-02 18:45 | disposition home health service (06) | DRG 553 ==
PROVIDERS: ADMIT Physical Medicine & Rehabilitation Spinal Cord Injury Medicine; ATTEND Internal Medicine
PROC: 0DB78ZX Excision of Stomach, Pylorus, Via Natural or Artificial Opening Endoscopic, Diagnostic (ICD-10-PCS; principal; 2019-08-25)
PROC: 0W3P8ZZ Control Bleeding in Gastrointestinal Tract, Via Natural or Artificial Opening Endoscopic (ICD-10-PCS; 2019-08-25)
PROC: 3E0G8GC Introduction of Other Therapeutic Substance into Upper GI, Via Natural or Artificial Opening Endoscopic (ICD-10-PCS; 2019-08-25)
PROC: 02HV33Z Insertion of Infusion Device into Superior Vena Cava, Percutaneous Approach (ICD-10-PCS; 2019-08-25)
PROC: B5181ZA Fluoroscopy of Superior Vena Cava using Low Osmolar Contrast, Guidance (ICD-10-PCS; 2019-08-25)
DX: M17.0 Bilateral primary osteoarthritis of knee (principal); K55.21 Angiodysplasia of colon with hemorrhage; K29.51 Unspecified chronic gastritis with bleeding; I44.2 Atrioventricular block, complete; N39.0 Urinary tract infection, site not specified; Z16.12 Extended spectrum beta lactamase (ESBL) resistance; D62 Acute posthemorrhagic anemia; K21.9 Gastro-esophageal reflux disease without esophagitis; E83.42 Hypomagnesemia; I44.7 Left bundle-branch block, unspecified; I10 Essential (primary) hypertension; E78.5 Hyperlipidemia, unspecified; I35.0 Nonrheumatic aortic (valve) stenosis; E03.9 Hypothyroidism, unspecified; Z96.651 Presence of right artificial knee joint; R53.81 Other malaise; R26.9 Unspecified abnormalities of gait and mobility; K44.9 Diaphragmatic hernia without obstruction or gangrene; E86.0 Dehydration; I95.9 Hypotension, unspecified; Z95.2 Presence of prosthetic heart valve; Z79.01 Long term (current) use of anticoagulants; Z88.0 Allergy status to penicillin; Z79.82 Long term (current) use of aspirin; Z79.899 Other long term (current) drug therapy; Z83.3 Family history of diabetes mellitus; Z82.49 Family history of ischemic heart disease and other diseases of the circulatory system
CPT/HCPCS: 36415; 36573; 76937; 80048; 80061; 81003; 82270; 82306; 82607; 82728; 82746; 83540; 83550; 83735; 84100; 84134; 84443; 85014; 85018; 85027; 86850; 86900; 86920; 87077; 87186; 88305; 88312; 88313; 93970; 93971; 97110; 97116; 97162; 97167; 97530; 97535; 99152; 99153; C1725; C1893; C9113; J1650; J2250; J3010; J3420; J3490; J7030; J7050; P9016; Q0162; G0500

== ENCOUNTER 2020-06-30 17:11 | Inpatient (IN) | payer MEDICARE, MEDICAID ==
[~2020-06-30] VITALS: Ht 160 cm; Wt 80.3 kg
[~2020-06-30 17:11] MED LIST changes: -CARV3.1242 PO; +COR6 PO; -LISI-604 PO; +LISI10TA5 PO; +OXYC-579 PO
[2020-06-30] MEDS ORDERED: SODIUM CHLORIDE 0.9% 1,000 ML IV ONE (18:15)
[2020-06-30 18:27] LABS: EOSINOPHILS % 5.6 % (0.0-5.0); HEMATOCRIT. 24.1 % (36.0-48.0); HEMOGLOBIN. 7.6 g/dL (12.0-16.0); MEAN CORPUSCULAR HEMOGLOBIN 25.1 pg (28.0-32.0); MEAN PLATELET VOLUME 8.5 fl (7.4-10.4); MONOCYTES % 6.1 % (2.0-8.0); NEUTROPHILS % 62.3 % (40.0-76.0); PLATELET 272 x1000/uL (130-400); RED BLOOD CELL COUNT 3.01 mill/uL (4.2-5.4); RED CELL DISTRIBUTION WIDTH 20.5 % (11.6-14.6)
[2020-06-30 18:33] LABS: CHLORIDE 110 mEq/L (98-107)
[2020-06-30 18:36] LABS: PROTHROMBIN TIME 10.6 sec (9.6-11.0)
[2020-06-30 23:19] VITALS: BP 149/75
[2020-06-30] MEDS ORDERED: DIPHENHYDRAMINE 50MG/ML VIAL IV PRN (23:30)
[2020-06-30] MEDS ORDERED: ACETAMINOPHEN 325MG TABLET PO PRN ×2 (23:30)
[2020-06-30] MEDS ORDERED: ONDANSETRON HCL 4MG/2ML INJ IV PRN (23:30)
[2020-07-01] VITALS (16 sets, daily range): BP systolic 137–176; BP diastolic 48–92
[2020-07-01] MEDS: PANTOPRAZOLE SODIUM 40 MG/VIAL IV SCH ×3 (00:16→21:44)
[2020-07-01] MEDS: SODIUM CHLORIDE 0.9% 1,000 ML IV SCH ×3 (00:16→19:45)
[2020-07-01 05:36] LABS: CHLORIDE 112 mEq/L (98-107)
[2020-07-01 05:46] LABS: PHOSPHORUS 3.2 mg/dL (2.5-4.9)
[2020-07-01 06:04] LABS: EOSINOPHILS % 6.7 % (0.0-5.0); HEMOGLOBIN. 7.3 g/dL (12.0-16.0); LYMPHOCYTES % 26.3 % (20.0-50.0); MEAN CORPUSCULAR HEMOGLOBIN 25.4 pg (28.0-32.0); MEAN CORPUSCULAR VOLUME 79.9 fL (81.0-99.0); MEAN PLATELET VOLUME 8.2 fl (7.4-10.4); MONOCYTES % 6.3 % (2.0-8.0); NEUTROPHILS % 59.7 % (40.0-76.0); PLATELET 238 x1000/uL (130-400); RED BLOOD CELL COUNT 2.88 mill/uL (4.2-5.4)
[2020-07-01] MEDS ORDERED: SODIUM BICARBONATE 4% (2.4MEQ) 5ML VIAL IV ONE (10:15)
[2020-07-01] MEDS ORDERED: LIDOCAINE HCL 1% 20ML VIAL (Pyxis) INJ ONE (10:16)
[2020-07-01] MEDS ORDERED: LABETALOL 5MG/ML SYR 20 MG/4 ML SYRINGE IV PRN (12:00)
[2020-07-01] MEDS ORDERED: PROPOFOL 200MG/20ML VIAL IV ONE ×2 (16:33→16:57)
[2020-07-01] MEDS ORDERED: LIDOCAINE HCL/PF 1% 10 MG/ML 5ML VIAL ONE (16:35)
[2020-07-01] MEDS ORDERED: EPINEPHRINE 0.1MG/ML (1:10,000) 10ML SYR ONE (17:00)
[2020-07-01] MEDS ORDERED: ONDANSETRON HCL 4MG/2ML INJ IV PRN (17:30)
[2020-07-02] VITALS (9 sets, daily range): BP systolic 146–165; BP diastolic 46–69
[2020-07-02] MEDS: SODIUM CHLORIDE 0.9% 1,000 ML IV SCH (05:22)
[2020-07-02] MEDS: PANTOPRAZOLE SODIUM 40 MG/VIAL IV SCH (08:46)
[2020-07-02 12:56] LABS: HEMATOCRIT 26.1 % (36.0-48.0); HEMOGLOBIN 8.6 g/dL (12.0-16.0); MEAN CORPUSCULAR VOLUME 82.4 fL (81.0-99.0); PLATELET 218 x1000/uL (130-400); RED BLOOD CELL COUNT 3.17 mill/uL (4.2-5.4); RED CELL DISTRIBUTION WIDTH 19.6 % (11.6-14.6)
== END 2020-07-02 18:30 | disposition home or self-care (01) | DRG 378 ==
LOC: ER 17:11 → 5EST 20:55 → ENRESERV 21:58
PROVIDERS: ADMIT Internal Medicine; ATTEND Internal Medicine
PROC: 0W3P8ZZ Control Bleeding in Gastrointestinal Tract, Via Natural or Artificial Opening Endoscopic (ICD-10-PCS; principal; 2020-07-01)
PROC: 02HV33Z Insertion of Infusion Device into Superior Vena Cava, Percutaneous Approach (ICD-10-PCS; 2020-07-01)
PROC: B518ZZA Fluoroscopy of Superior Vena Cava, Guidance (ICD-10-PCS; 2020-07-01)
PROC: B548ZZA Ultrasonography of Superior Vena Cava, Guidance (ICD-10-PCS; 2020-07-01)
DX: K31.811 Angiodysplasia of stomach and duodenum with bleeding (principal); D62 Acute posthemorrhagic anemia; K44.9 Diaphragmatic hernia without obstruction or gangrene; E78.00 Pure hypercholesterolemia, unspecified; E78.5 Hyperlipidemia, unspecified; I11.0 Hypertensive heart disease with heart failure; I50.9 Heart failure, unspecified; M19.90 Unspecified osteoarthritis, unspecified site; I35.0 Nonrheumatic aortic (valve) stenosis; Z20.828 Contact with and (suspected) exposure to other viral communicable diseases; Z88.0 Allergy status to penicillin; Z79.891 Long term (current) use of opiate analgesic; Z79.1 Long term (current) use of non-steroidal anti-inflammatories (NSAID); Z79.890 Hormone replacement therapy; Z79.899 Other long term (current) drug therapy
CPT/HCPCS: 36415; 36573; 80048; 80053; 83735; 84100; 85025; 85027; 86850; 86900; 86920; 87426; 93005; 99285; C1725; C9113; J2405; J2704; J3490; J7030; P9016

== ENCOUNTER → 2020-08-08 | Outpatient (CLI) | payer MEDICARE, MEDICAID | END | disposition home or self-care (01) | LOC: RAD 13:02 | PROVIDERS: ATTEND Specialist | DX: Z01.818 Encounter for other preprocedural examination (principal); R05 Cough; K44.9 Diaphragmatic hernia without obstruction or gangrene; Z95.818 Presence of other cardiac implants and grafts | CPT/HCPCS: 71046 ==